=== PATIENT | female | born 2000 | race Caucasian/White ===

== ENCOUNTER 2023-05-02 04:40 | Emergency (ER) | payer OTHER ==
[~2023-05-02] VITALS: Ht 162.6 cm; Wt 113.4 kg
[2023-05-02 04:43] VITALS: PULSE 117; RESP 16; TEMP 97.2; O2SAT 97
[2023-05-02 05:13] VITALS: BP 152/80
[2023-05-02] MEDS ORDERED: NACL 0.9% 1,000 ML IV ONE (06:55)
[2023-05-02 06:56] VITALS: PULSE 98; O2SAT 100
== END 2023-05-02 07:42 | disposition home or self-care (01) ==
LOC: MED 04:40
DX: R00.0 Tachycardia, unspecified (principal); E86.0 Dehydration; F10.129 Alcohol abuse with intoxication, unspecified; Y90.9 Presence of alcohol in blood, level not specified
CPT/HCPCS: 99283